=== PATIENT | female | born 1990 | race Caucasian/White ===

== ENCOUNTER 2016-04-26 14:39 | Emergency (ER) | payer MEDICAID, SELFPAY ==
[2016-04-26] MEDS ORDERED: Acetaminophen/Codeine 30-300mg Tablet ONE (14:54)
== END 2016-04-26 15:23 | disposition home or self-care (01) ==
LOC: NAV ERS 14:39
DX: R11.2 Nausea with vomiting, unspecified (principal); R19.7 Diarrhea, unspecified; M25.9 Joint disorder, unspecified; F32.9 Major depressive disorder, single episode, unspecified
CPT/HCPCS: 99283

== ENCOUNTER 2016-05-30 06:09 | Emergency (ER) | payer MEDICAID ==
[2016-05-30] MEDS ORDERED: Sodium Chloride 0.9% 1,000 ML ONE ×2 (06:52→08:04)
[2016-05-30] MEDS ORDERED: Pantoprazole 40 MG VIAL ONE (06:52)
[2016-05-30] MEDS ORDERED: Ondansetron HCl/PF 4 MG/2 ML Vial ONE (06:52)
[2016-05-30 06:53] LABS: #Lymphocytes 0.4 thou/uL (1.20-3.40); #Monocytes 0.3 thou/uL (0.11-0.59); #Neutrophils 13.2 thou/uL (1.40-6.50); %Basophils 0.1 % (0.0-1.0); %Lymphocytes 2.7 % (21.0-51.0); %Monocytes 2.4 % (0.0-10.0); %Neutrophils 94.7 % (42.0-75.0); Hemoglobin 11.9 g/dL (12.0-16.0); MDiff Complete? YES; Mean Corpuscular HGB CONC 30.5 g/dL (32.0-36.0); Mean Corpuscular Hemoglobin 23.8 pg (27.0-31.0); Mean Corpuscular Volume 78.1 fl (81.0-99.0); Mean Platelet Volume 8.2 fL (7.4-10.4); Microcytosis SLIGHT = 6-15 cells (100X) (0-5/hpf); Ovalocytes SLIGHT = 2-5 cells (100X) (0-1/hpf); PLT Morphology Comment Appears Adequate; Platelet Count 218 thou/uL (130-400); Red Blood Cell (RBC) Count 5.01 mill/uL (4.20-5.40); White Blood Cell (WBC) Count 13.9 thou/uL (4.8-10.8)
[2016-05-30] MEDS ORDERED: Ketorolac Tromethamine 30 MG/ML VIAL ONE (06:57)
[2016-05-30] MEDS ORDERED: Fentanyl 100 MCG/2 ML VIAL ONE (07:00)
[2016-05-30 07:10] LABS: ALT (SGPT) 12 U/L (0-55); AST (SGOT) 13 U/L (5-34); Albumin 4.2 g/dL (3.5-5.0); Alkaline Phosphatase 39 U/L (40-150); Anion Gap 16 mmol/L (10-20); BUN (Urea Nitrogen) 13 mg/dL (7.0-18.7); Bilirubin, Total 0.5 mg/dL (0.2-1.2); Calc. Creatinine Clearance 0 mL/min (70-130); Carbon Dioxide 23 mmol/L (22-29); Chloride 107 mmol/L (98-107); Estimated GFR-MDRD Greater than 90; Globulin 2.7 g/dL (2.4-3.5); Glucose 90 mg/dL (70-105); Lipase 56 U/L (8-78); Potassium 3.7 mmol/L (3.5-5.1); Protein, Total 6.9 g/dL (6.0-8.3); Sodium 142 mmol/L (136-145)
[2016-05-30 08:28] LABS: Bilirubin Negative (Negative); Blood, Urine Negative (Negative); Clarity Clear (Clear); Glucose, Urine (Dipstick) Negative (Negative); Leukocyte Negative (Negative); Nitrite Negative (Negative); Protein, Urine (Dipstick) Negative (Neg-Trace); Urobilinogen 0.2 mg/dL (0.2-1.0); pH, Urine 5.5 (5.0-9.0)
[2016-05-30 08:29] LABS: Pregu Control Bar Appear? YES (CONTROL BAR)
== END 2016-05-30 08:50 | disposition home or self-care (01) ==
LOC: NAV ERS 06:09
DX: K52.9 Noninfective gastroenteritis and colitis, unspecified (principal); F32.9 Major depressive disorder, single episode, unspecified; F41.9 Anxiety disorder, unspecified
CPT/HCPCS: 36415; 80053; 81003; 81025; 83690; 85025; 96361; 96374; 96375; C9113; J1885; J2405; J3010; J7050

== ENCOUNTER 2016-07-09 14:24 | Emergency (ER) | payer MEDICAID ==
--- NOTE | 2016-07-09 14:46 | RAD ---
LEFT HAND 3 VIEWS: HISTORY: Injury, left hand pain. FINDINGS/IMPRESSION: No acute fracture or dislocation is identified. POS: DERICK
[2016-07-09] MEDS ORDERED: Ondansetron ODT 4 MG TAB ONE (14:55)
[2016-07-09] MEDS ORDERED: Ibuprofen 800 MG TAB ONE (14:58)
== END 2016-07-09 15:18 | disposition home or self-care (01) ==
LOC: NAV ERS 14:24
DX: S60.222A Contusion of left hand, initial encounter (principal); F41.9 Anxiety disorder, unspecified; F32.9 Major depressive disorder, single episode, unspecified; F90.9 Attention-deficit hyperactivity disorder, unspecified type; W23.0XXA Caught, crushed, jammed, or pinched between moving objects, initial encounter
CPT/HCPCS: 96372; J2270; Q0162

== ENCOUNTER 2016-08-30 07:49 | Emergency (ER) | payer OTHER ==
[2016-08-30] MEDS ORDERED: Ondansetron ODT 4 MG TAB ONE (08:07)
[2016-08-30] MEDS ORDERED: HYDROcodone/Acetaminophen 5/325 mg Tablet ONE (08:42)
[2016-08-30] MEDS ORDERED: Ketorolac Tromethamine 30 MG/ML VIAL ONE (08:43)
[2016-08-30 08:48] LABS: #Eosinphils 0.1 thou/uL (0.0-0.7); #Lymphocytes 1.1 thou/uL (1.20-3.40); #Monocytes 0.2 thou/uL (0.11-0.59); %Eosinophils 2.4 % (0.0-10.0); %Monocytes 6.8 % (0.0-10.0); %Neutrophils 57.8 % (42.0-75.0); Hemoglobin 10.1 g/dL (12.0-16.0); Mean Corpuscular HGB CONC 30.2 g/dL (32.0-36.0); Mean Corpuscular Hemoglobin 21.9 pg (27.0-31.0); Mean Corpuscular Volume 72.7 fl (81.0-99.0); Mean Platelet Volume 6.7 fL (7.4-10.4); Platelet Count 207 thou/uL (130-400); RBC Distribution Width 15.4 % (11.5-14.5); White Blood Cell (WBC) Count 3.5 thou/uL (4.8-10.8)
[2016-08-30 09:04] LABS: ALT (SGPT) 29 U/L (8-55); AST (SGOT) 16 U/L (5-34); Alkaline Phosphatase 53 U/L (40-150); Anion Gap 14 mmol/L (10-20); BUN (Urea Nitrogen) 8 mg/dL (7.0-18.7); Bilirubin, Total 0.3 mg/dL (0.2-1.2); Calc. Creatinine Clearance 0 mL/min (70-130); Calcium 8.9 mg/dL (7.8-10.44); Carbon Dioxide 22 mmol/L (22-29); Chloride 107 mmol/L (98-107); Estimated GFR-MDRD Greater than 90; Globulin 2.4 g/dL (2.4-3.5); Glucose 96 mg/dL (70-105); Protein, Total 6.4 g/dL (6.0-8.3); Sodium 139 mmol/L (136-145)
[2016-08-30 09:13] LABS: Bilirubin Negative (Negative); Blood, Urine Moderate (Negative); Clarity Clear (Clear); Glucose, Urine (Dipstick) Negative (Negative); Leukocyte Trace (Negative); Nitrite Negative (Negative); Protein, Urine (Dipstick) Trace mg/dL (Neg-Trace); Specific Gravity, Urine 1.025 (1.005-1.030); Urobilinogen 0.2 mg/dL (0.2-1.0); pH, Urine 6.5 (5.0-9.0)
[2016-08-30 09:21] LABS: Pregnancy Test - Urine (BHCG) Negative (NEGATIVE); Pregu Control Background? CLEAR/WHITE (CLR/WHITE); Pregu Control Bar Appear? YES (CONTROL BAR); Specific Gravity 1.025 (1.002-1.036)
[2016-08-30 09:22] LABS: Amphetamine Detected (NotDetected); Barbiturates Screen Not Detected (NotDetected); Benzodiazepine Screen Detected (NotDetected); Cocaine Metabolite Screen Not Detected (NotDetected); Medtox Control Line Valid? VALID (VALID); Methadone Not Detected (NotDetected); Methamphetamine Not Detected (NotDetected); Opiate Screen Detected (NotDetected); Oxycodone Screen Not Detected (NotDetected); Phencyclidine (PCP) Not Detected (NotDetected); THC/Cannabinoid Screen Not Detected (NotDetected); Tricyclic Screen Not Detected (NotDetected)
[2016-08-30 09:24] LABS: MDiff Complete? YES; Microcytosis SLIGHT = 6-15 cells (100X) (0-5/hpf)
[2016-08-30 09:25] LABS: Hypochromia SLIGHT = 6-15 cells (100X) (0-5/hpf); PLT Morphology Comment Appears Adequate
[2016-08-30 09:26] LABS: Bacteria/HPF Rare-Few HPF (None Seen); RBC/HPF 0-3 HPF (0-3); WBC/HPF 0-3 HPF (0-3)
[2016-08-30] MEDS ORDERED: cefTRIAXone\\ROCEPHIN 1 GM VIAL ONE (09:29)
[2016-08-30] MEDS ORDERED: Sodium Chloride 0.9% 100 ML ONE (09:29)
--- NOTE | 2016-08-30 12:22 | CT ---
CT ABDOMEN AND PELVIS WITHOUT IV CONTRAST INDICATIONS: Right lower back pain with urinary frequency, nausea, and chills. COMPARISON: Prior CT examination, dated 11/10/2014. FINDINGS: There is stable post surgical change of a gastric bypass. The gallbladder is surgically absent. No renal or ureteral calculus is evident. The unopacified liver, spleen, pancreas, and adrenal glands appear within normal limits. There is a normal appendix in the right lower quadrant. The rectum and perirectal soft tissues are unremarkable. The unopacified large and small bowel appear within normal limits. There is no evidence to suggest bowel obstruction. No acute osseous abnormality is evident. There is mild degenerative change of the lower lumbar spin e. IMPRESSION: No definite acute abnormality. POS: ROX
== END 2016-08-30 10:10 | disposition home or self-care (01) ==
LOC: NAV ERS 07:49
DX: N39.0 Urinary tract infection, site not specified (principal); F41.9 Anxiety disorder, unspecified; F32.9 Major depressive disorder, single episode, unspecified; F90.9 Attention-deficit hyperactivity disorder, unspecified type; Z79.899 Other long term (current) drug therapy
CPT/HCPCS: 36415; 74176; 80053; 80306; 81003; 81015; 81025; 85025; 87086; 96365; 96375; J0696; J1885; J7050; Q0162

== ENCOUNTER 2016-08-31 13:18 | Emergency (ER) | payer OTHER | END 2016-08-31 14:03 | disposition home or self-care (01) | LOC: NAV ERS 13:18 | DX: N12 Tubulo-interstitial nephritis, not specified as acute or chronic (principal); M32.9 Systemic lupus erythematosus, unspecified; G25.81 Restless legs syndrome; F32.9 Major depressive disorder, single episode, unspecified; F41.9 Anxiety disorder, unspecified; F90.9 Attention-deficit hyperactivity disorder, unspecified type; Z79.2 Long term (current) use of antibiotics; Z79.899 Other long term (current) drug therapy | CPT/HCPCS: 99283 ==

== ENCOUNTER 2016-09-29 17:37 | Emergency (ER) | payer OTHER ==
[2016-09-29] MEDS ORDERED: Ibuprofen 200 MG TAB ONE (18:18)
[2016-09-29] MEDS ORDERED: traMADol HCl 50 MG TAB ONE (18:18)
== END 2016-09-29 18:21 | disposition home or self-care (01) ==
LOC: NAV ERS 17:37
DX: S80.02XA Contusion of left knee, initial encounter (principal); F90.9 Attention-deficit hyperactivity disorder, unspecified type; F32.9 Major depressive disorder, single episode, unspecified; F41.9 Anxiety disorder, unspecified; Z79.52 Long term (current) use of systemic steroids; W01.198A Fall on same level from slipping, tripping and stumbling with subsequent striking against other object, initial encounter; Y92.009 Unspecified place in unspecified non-institutional (private) residence as the place of occurrence of the external cause
CPT/HCPCS: 99283

== ENCOUNTER 2018-03-26 13:11 | Emergency (ER) | payer OTHER | END 2018-03-26 14:23 | disposition home or self-care (01) | LOC: NAV ERS 13:11 | DX: M54.16 Radiculopathy, lumbar region (principal); F41.9 Anxiety disorder, unspecified; F32.9 Major depressive disorder, single episode, unspecified; M35.9 Systemic involvement of connective tissue, unspecified; Z79.899 Other long term (current) drug therapy | CPT/HCPCS: 99283 ==

== ENCOUNTER 2018-07-13 21:51 | Emergency (ER) | payer OTHER ==
[2018-07-13] MEDS ORDERED: Ondansetron ODT 4 MG TAB ONE (22:08)
[2018-07-13 22:15] LABS: Bilirubin Negative (Negative); Blood, Urine Negative (Negative); Clarity Clear (Clear); Glucose, Urine (Dipstick) Negative (Negative); Leukocyte Small (Negative); Nitrite Negative (Negative); Protein, Urine (Dipstick) Negative (Neg-Trace); Urobilinogen 0.2 mg/dL (0.2-1.0); pH, Urine 5.5 (5.0-9.0)
[2018-07-13 22:16] LABS: Bacteria/HPF 1+ HPF (None Seen); RBC/HPF None Seen HPF (0-3); Specific Gravity, Urine 1.032 (1.002-1.036)
[2018-07-13 22:44] LABS: #Basophils 0.1 thou/uL (0.0-0.2); #Eosinphils 0.1 thou/uL (0.0-0.7); #Lymphocytes 1.5 thou/uL (1.20-3.40); #Monocytes 0.3 thou/uL (0.11-0.59); %Basophils 1.1 % (0.0-1.0); %Eosinophils 1.7 % (0.0-10.0); %Lymphocytes 29.8 % (21.0-51.0); %Monocytes 6.4 % (0.0-10.0); %Neutrophils 61.1 % (42.0-75.0); Hemoglobin 12.6 g/dL (12.0-16.0); Mean Corpuscular HGB CONC 32.6 g/dL (32.0-36.0); Mean Corpuscular Volume 85.8 fL (78.0-98.0); Mean Platelet Volume 7.5 fL (7.4-10.4); Platelet Count 200 thou/uL (130-400); RBC Distribution Width 11.3 % (11.5-14.5); Red Blood Cell (RBC) Count 4.51 mill/uL (4.20-5.40); White Blood Cell (WBC) Count 4.9 thou/uL (4.8-10.8)
[2018-07-13 23:05] LABS: ALT (SGPT) 11 U/L (8-55); AST (SGOT) 17 U/L (5-34); Albumin 4.2 g/dL (3.5-5.0); Alkaline Phosphatase 34 U/L (40-150); Anion Gap 16 mmol/L (10-20); BUN (Urea Nitrogen) 10 mg/dL (7.0-18.7); Bilirubin, Total 0.5 mg/dL (0.2-1.2); Calc. Creatinine Clearance 0 mL/min (70-130); Calcium 9.3 mg/dL (7.8-10.44); Carbon Dioxide 21 mmol/L (22-29); Chloride 104 mmol/L (98-107); Estimated GFR-MDRD Greater than 90; Globulin 2.5 g/dL (2.4-3.5); Glucose 89 mg/dL (70-105); Potassium 3.7 mmol/L (3.5-5.1); Protein, Total 6.7 g/dL (6.0-8.3); Sodium 137 mmol/L (136-145)
[2018-07-13] MEDS ORDERED: Nitrofurantoin Macrocrystal 50 MG CAP ONE (23:28)
== END 2018-07-13 23:40 | disposition home or self-care (01) ==
LOC: NAV ERS 21:51
DX: O23.41 Unspecified infection of urinary tract in pregnancy, first trimester (principal); O99.341 Other mental disorders complicating pregnancy, first trimester; F32.9 Major depressive disorder, single episode, unspecified; F41.9 Anxiety disorder, unspecified; O99.89 Other specified diseases and conditions complicating pregnancy, childbirth and the puerperium; M32.9 Systemic lupus erythematosus, unspecified; Z3A.10 10 weeks gestation of pregnancy
CPT/HCPCS: 36415; 80053; 81003; 81015; 83605; 85025; 87086; 99283; Q0162

== ENCOUNTER 2019-11-07 02:28 | Emergency (ER) | payer SELFPAY ==
[2019-11-07] MEDS ORDERED: methylPREDNISolone Sod Succ/PF 125 MG/2 ML VIAL ONE (03:03)
== END 2019-11-07 03:25 | disposition home or self-care (01) ==
LOC: NAV ERS 02:28
DX: R20.2 Paresthesia of skin (principal); F41.9 Anxiety disorder, unspecified; F32.9 Major depressive disorder, single episode, unspecified; Z79.899 Other long term (current) drug therapy
CPT/HCPCS: 96372; 99283; J2930

== ENCOUNTER 2020-10-17 10:24 | Inpatient (IN) | payer BC, SELFPAY ==
[2020-10-17] MEDS ORDERED: Sodium Chloride 0.9% 1,000 ML ONE (11:15)
[2020-10-17] MEDS ORDERED: Ventolin HFA Inhaler 60 PUFF INHALER ONE (11:17)
[2020-10-17] MEDS ORDERED: methylPREDNISolone Sod Succ/PF 125 MG/2 ML VIAL ONE (11:17)
[2020-10-17 11:50] LABS: BHCG - Serum Negative (NEGATIVE); Pregs Control Bar Appear? YES (CONTROL BAR)
[2020-10-17 11:54] LABS: ALT (SGPT) 89 U/L (8-55); AST (SGOT) 42 U/L (5-34); Albumin 3.2 g/dL (3.5-5.0); Alkaline Phosphatase 219 U/L (40-110); Anion Gap 10 mmol/L (10-20); BUN (Urea Nitrogen) 7 mg/dL (7.0-18.7); Bilirubin, Total 0.2 mg/dL (0.2-1.2); Calc. Creatinine Clearance 0 mL/min (70-130); Calcium 8.2 mg/dL (7.8-10.44); Carbon Dioxide 30 mmol/L (22-29); Chloride 103 mmol/L (98-107); Globulin 2.6 g/dL (2.4-3.5); Glucose 103 mg/dL (70-105); Potassium 3.2 mmol/L (3.5-5.1); Protein, Total 5.8 g/dL (6.0-8.3); Sodium 140 mmol/L (136-145)
[2020-10-17 12:05] LABS: Base Excess-Venous 4.3 mmol/L (-2.0 to 3.0); CO2 Tension (PvCO2) 54.9 mmHg (42.0-51.0); vO2 Saturation-calc 63.3 % (60.0-85.0)
[2020-10-17 12:06] LABS: Chloride 102 mmol/L (98-107); Hemoglobin - Calc 10.3 g/dL (12.0-16.0); Sodium 141 mmol/L (138-145); T. Carbon Dioxide 32.5 mmol/L (22.0-28.0)
[2020-10-17 12:07] LABS: Calcium, Ionized 1.13 mmol/L (1.15-1.33)
[2020-10-17 12:09] LABS: Bicarbonate (HCO3v) 30.8 mmol/L (22.0-28.0)
[2020-10-17 12:17] LABS: #Lymphocytes 0.3 thou/uL (1.20-3.40); #Monocytes 0.1 thou/uL (0.11-0.59); #Neutrophils 2.8 thou/uL (1.40-6.50); %Eosinophils 0.1 % (0.0-10.0); %Lymphocytes 8.5 % (21.0-51.0); %Monocytes 2.5 % (0.0-10.0); %Neutrophils 88.9 % (42.0-75.0); Anisocytosis SLIGHT = 6-15 cells (100X) (0-5/hpf); Elliptocytes SLIGHT = 2-5 cells (100X) (0-1/hpf); Hemoglobin 9.7 g/dL (12.0-16.0); Hypochromia SLIGHT = 6-15 cells (100X) (0-5/hpf); MDiff Complete? YES; Mean Corpuscular HGB CONC 29.7 g/dL (32.0-36.0); Mean Corpuscular Hemoglobin 23.8 pg (27.0-31.0); Mean Corpuscular Volume 80.1 fL (78.0-98.0); Mean Platelet Volume 7.4 fL (7.4-10.4); Microcytosis SLIGHT = 6-15 cells (100X) (0-5/hpf); Ovalocytes SLIGHT = 2-5 cells (100X) (0-1/hpf); Platelet Count 101 thou/uL (130-400); Platelet Morphology Comment Appears Decreased; Poikilocytosis SLIGHT = 6-15 cells (100X) (0-5/hpf); RBC Distribution Width 14.8 % (11.5-14.5); Red Blood Cell (RBC) Count 4.09 mill/uL (4.20-5.40); White Blood Cell (WBC) Count 3.1 thou/uL (4.8-10.8)
[2020-10-17] MEDS ORDERED: traMADol HCl 50 MG TAB ONE (12:42)
[2020-10-17 13:44] LABS: SARS-CoV-2 NAA Rapid Test DETECTED (NotDetected)
[2020-10-18] MEDS ORDERED: Iopamidol 370 76% 100 ML VIAL ONE (09:00)
[2020-10-18 14:07] VITALS: BMI 42.0
[2020-10-18] MEDS ORDERED: Albuterol 200 PUFF (6.7GM INHALER) INH PRN ×2 (14:55→18:58)
[2020-10-18] MEDS ORDERED: traMADol HCl 50 MG TAB PO PRN ×2 (14:58→18:36)
[2020-10-18] MEDS ORDERED: clonazePAM 0.5 MG TAB PO PRN ×2 (16:50→18:36)
[2020-10-18] MEDS ORDERED: cloNIDine 0.1 MG TAB PO SCH ×2 (21:00)
[2020-10-18] MEDS ORDERED: Enoxaparin Sodium 40 MG/0.4 ML SYRINGE SC SCH (21:00)
[2020-10-19] MEDS ORDERED: ALPRAZolam 0.25 MG TAB PO PRN (00:50)
[2020-10-19 03:26] VITALS: BP 161/99; TEMP 100.1
[2020-10-19] MEDS ORDERED: Dexamethasone 4 MG TAB PO SCH ×2 (09:00)
[2020-10-19] MEDS ORDERED: FLUoxetine HCl 20 MG CAP PO SCH ×2 (09:00)
[2020-10-19] MEDS ORDERED: Enoxaparin Sodium 40 MG/0.4 ML SYRINGE SC SCH ×2 (09:00)
== END 2020-10-19 06:08 | disposition short-term general hospital (02) | DRG 177 ==
LOC: NAV ERS 10:24 → NAV ACUTE 10-18 12:03
PROVIDERS: ADMIT Internal Medicine; ATTEND Internal Medicine
PROC: 8E0ZXY6 Isolation (ICD-10-PCS; principal; 2020-10-18)
DX: U07.1 COVID-19 (principal); J12.82 Pneumonia due to coronavirus disease 2019; Z68.41 Body mass index [BMI] 40.0-44.9, adult; F32.9 Major depressive disorder, single episode, unspecified; F90.9 Attention-deficit hyperactivity disorder, unspecified type; I10 Essential (primary) hypertension; E66.9 Obesity, unspecified; F41.9 Anxiety disorder, unspecified; Z90.49 Acquired absence of other specified parts of digestive tract; Z98.84 Bariatric surgery status; Z88.0 Allergy status to penicillin; Z88.8 Allergy status to other drugs, medicaments and biological substances
CPT/HCPCS: 71045; 71275; 80053; 82330; 82803; 83605; 83880; 84484; 84703; 85025; 85379; 93005; 94760; 96374; J2405; J2930; J7050; Q9967; U0002

== ENCOUNTER 2020-10-18 10:29 | Emergency (ER) | payer BC ==
[2020-10-18] MEDS ORDERED: Sodium Chloride 0.9% 1,000 ML ONE (10:39)
[2020-10-18] MEDS ORDERED: Ondansetron PF 4 MG/2 ML Vial ONE (10:39)
[2020-10-18] MEDS ORDERED: Acetaminophen 500 MG TAB ONE (11:06)
[2020-10-18] MEDS ORDERED: clonazePAM 0.5 MG TAB ONE (17:32)
[2020-10-18] MEDS ORDERED: traMADol HCl 50 MG TAB ONE (17:32)
== END 2020-10-18 12:30 | disposition critical access hospital (66) ==
LOC: NAV ERS 10:29
DX: U07.1 COVID-19 (principal); R11.2 Nausea with vomiting, unspecified; I10 Essential (primary) hypertension; Z79.899 Other long term (current) drug therapy
CPT/HCPCS: 93005; 94760; J2405; J7050